=== PATIENT | female | born 1940 | race Two or more races ===

== ENCOUNTER 2019-12-26 15:33 | Inpatient (IN) | payer MEDICARE, OTHER ==
[~2019-12-26] VITALS: Ht 157.5 cm; Wt 67.1 kg
[~2019-12-26 15:33] MED LIST: ESOM20CA PO; HYDR-500 PO; SULF1TAB48 PO
[2019-12-26] MEDS ORDERED: ZOLP5TAB2 PO (16:20)
[2019-12-26] MEDS ORDERED: LEVO50TA8 PO (16:20)
[2019-12-26] MEDS ORDERED: ACET-868 PO (16:20)
[2019-12-26] MEDS ORDERED: HYDR25TA4 PO (16:20)
[2019-12-26] MEDS ORDERED: LORA-259 PO (16:20)
[2019-12-26] MEDS ORDERED: SIMV-46 PO (16:20)
[2019-12-26] MEDS ORDERED: MAGN400O6 PO (16:20)
[2019-12-26] MEDS ORDERED: QUET100T PO (16:20)
[2019-12-26] MEDS ORDERED: IBUP-1955 PO (16:20)
[2019-12-26] MEDS ORDERED: DOCU250C14 PO (16:20)
[2019-12-26] MEDS ORDERED: OMEP20CA15 PO (16:20)
[2019-12-26] MEDS ORDERED: LACT1CAP71 PO (16:20)
[2019-12-26] MEDS ORDERED: SENN-261 PO (16:20)
[2019-12-26] MEDS ORDERED: CHOL100040 PO (16:20)
[2019-12-26] MEDS ORDERED: OLAN10TA3 PO (16:20)
--- NOTE | 2019-12-26 16:21 | NUR ---
PT BIB PRIVATE AMBULANCE FOR MEDICAL CLEARANCE PRIOR TO ADMISSION TO [facility]. PT REPORTS LEFT LEG PAIN FROM "CALLUSES" ON BOTTOM OF FOOT, ASKING FOR MOTRIN. DENIES SI/HI. ON 5150 FOR DANGER TO OTHERS. RESP EVEN UNLABORED. NAD NOTED. IN ER BED 13, CALM AND COOPERATIVE.
[2019-12-26 16:31] LABS: BASOPHILS % (AUTO) 0.3 % (0.0-2.0); EOSINOPHILS % (AUTO) 4.2 % (0.0-6.0); HEMATOCRIT 37 % (33-45); LYMPHOCYTES % (AUTO) 22.3 % (20.0-44.0); MEAN CORPUSCULAR HGB CONC 33 g/dl (31.0-36.0); MEAN CORPUSCULAR VOLUME 87 fL (82-100); MONOCYTES # (AUTO) 0.8 /CMM (0.1-1.30); MONOCYTES % (AUTO) 8.3 % (2.0-12.0); NEUTROPHILS # (AUTO) 5.9 /CMM (1.8-8.9); NEUTROPHILS % (AUTO) 64.9 % (43.0-81.0); PLATELET COUNT (AUTO) 237 /CMM (150-450); RED BLOOD CELL COUNT(AUTO) 4.19 MIL/uL (4.0-5.2); WHITE BLOOD COUNT (AUTO) 9.1 K/uL (4.3-11.0)
--- NOTE | 2019-12-26 16:42 | NUR ---
RAPID COVID SWAB DONE AND SENT TO LAB
[2019-12-26 16:54] LABS: ALANINE AMINOTRANSFERASE 13 U/L (12-78); ALBUMIN 3.1 g/dL (3.4-5.0); ALCOHOL, BLOOD < 3 mg/dL (0-0); ALKALINE PHOSPHATASE 65 U/L (46-116); ASPARTATE AMINOTRANSFERASE 14 U/L (15-37); BILIRUBIN,TOTAL 0.3 mg/dL (0.2-1.0); CALCIUM, SERUM 8.8 mg/dL (8.5-10.1); CARBON DIOXIDE 31 mmol/L (21-32); CHLORIDE 102 mmol/L (98-107); CREATININE 0.9 mg/dL (0.6-1.3); GLUCOSE 89 mg/dL (74-106); POTASSIUM 3.6 mmol/L (3.5-5.1); SODIUM SERUM 136 mmol/L (136-145); TOTAL PROTEIN, SERUM 7.2 g/dL (6.4-8.2); UREA NITROGEN, BLOOD 31 mg/dL (7-18)
--- NOTE | 2019-12-26 17:30 | NUR ---
PROVIDED WITH DINNER TRAY
--- NOTE | 2019-12-26 17:44 | NUR ---
negative covid19 test.
--- NOTE | 2019-12-26 17:49 | NUR ---
NURSING SUP GAVE [facility] BED 214-B.
--- NOTE | 2019-12-26 17:51 | NUR ---
REPORT GIVEN TO POLY PATEL
[2019-12-26 18:20] LABS: ACETAMINOPHEN 0 ug/ml (10-30)
--- NOTE | 2019-12-26 18:20 | NUR ---
TRANSFERRED TO [facility] RM 214 IN STABLE CONDITION.
[2019-12-26] MEDS ORDERED: BLOOD SUGAR DIAGNOSTIC 1 EACH STRIP IN ONE (19:00)
[2019-12-26] MEDS ORDERED: MAGNESIUM HYDROXIDE 30 ML UDC PO PRN (19:00)
[2019-12-26] MEDS ORDERED: ACETAMINOPHEN 325 MG TABLET PO PRN (19:00)
[2019-12-26] MEDS ORDERED: MAG HYDROX/AL HYDROX/SIMETH 30 ML UDC PO PRN (19:00)
[2019-12-26] MEDS: DOCUSATE SODIUM 250 MG CAPSULE PO SCH (20:46)
[2019-12-26] MEDS: OLANZAPINE 5 MG TABLET PO SCH (21:33)
[2019-12-26] MEDS: LACTOBACILLUS RHAMNOSUS GG 1 EACH CAP.SPRINK PO SCH (21:33)
[2019-12-26] MEDS: DIVALPROEX SODIUM 250 MG TABLET.DR PO SCH (21:33)
[2019-12-26] MEDS: SIMVASTATIN 20 MG TABLET PO SCH (21:33)
[2019-12-26] MEDS: IBUPROFEN 600 MG TABLET PO PRN (21:37)
[2019-12-26] MEDS: MAGNESIUM HYDROXIDE 30 ML UDC PO PRN (21:37)
--- NOTE | 2019-12-26 21:40 | NUR ---
[facility] RN NOTE: PAIN PT WAS C/O OF 6/10 LEG PAIN, REQUESTED MOTRIN, ADMIN MOTRIN PRN@ [phone], PT TOLERATED WELL, WILL REASSESS AND CONTINUE TO MONITOR Q15MIN FOR SAFETY AND BEHAVIOR
--- NOTE | 2019-12-26 22:00 | NUR ---
[facility] RN NOTE: ADMISSION NOTE PT ARRIVED ON THE UNIT AT 1900, PT IS A/O X2, CALM, COOPERATIVE, CONFUSED AT TIMES BUT REDIRECTABLE, PT KNOWS WHERE SHE IS, WHAT DAY IT IS BUT "DOES NOT UNDERSTAND WHY I'M HERE" PER PT WORDS. PER REPORT PT IS VERY UNPREDICTABLE, ANXIOUS, AND IS CURRENTLY ON A 5150 DUE TO DTO, PER HOLD PT WAS THROWING VASES AND BECOMING ABUSIVE, HITTING RESIDENTS AND STAFF AT THE FACILITY SHE RESIDES IN [facility]. UPON ASSESSMENT PT WAS COOPERATIVE AND COMPLIANT. PT HAS A MEDICAL HX OF HYPOTHYRPIDISM, GERD AND PSYCH HX OF SCHIZOAFFECTIVE. PT HAS A DISHEVELED APPEARANCE, CONTINENT, AMBULATORY WITH WALKER HAS MILD WEAKNESS AND MOTOR DEFICITS, PT WAS ORDERED. SKIN ASSESSMENT WAS DONE PT HAS SACRAL REDNESS AND PSORIASIS THROUGHOUT THE BODY, PICTURES PLACED IN CHART, WOUND CONSULT ORDERED. PT WAS ADVISED OF THE HOLD AND REASON FOR ADMISSION. PT FAMILY HAS BEEN NOTIFIED, PT SPOKE TO DR. WRIGHT AND WAS STARTED ON SCHEDUELED MEDICATION, PT TOLERATED MEDICATION WELL AND WAS COOPERATIVE. PT STATES SHE DENIES SI/HI, DENIES AVH BUT HAS PARANOID IDEATION, PT BELEIVES THAT THE DEVIL IS OUT TO GET HER, PER PTS WORDS.PT STATES SHE CURRENTLY SMOKED 2 PACKS OF CIGARETTES A DAY BUT REFUSES A NICOTINE PATCH, PT STATED " I LIKE TO GET HIGH AND DRINK VODKA AND ORANGE JUICE DAILY". PT CAN NOT RECALL IF SHE RECEIVED THE PNA VACCINE, I CALLED THE FACILITY AT 2057 3X AND NO ANSWER, WILL TRY AGAIN IN THE MORNING AND PT REFUSES THE FLU VACCINE SHE STATED SHE BELIEVES IT WILL GET HER SICK. PT RIGHT BOOKLET AND COPY OF ADVISEMENT GIVEN TO THE PT, PT MADE AWARE OF THE UNIT, ALL NEEDS MET AT THIS TIME. PT WILL BE UNDER THE PLAN OF CARE OF DR. CASTANEDA AND [facility] CARE OF DR. WRIGHT, BOTH ADVISED OF THE PTS ADMISSION. WILL CONTINUE TO MONITOR Q15MIN FOR SAFETY AND BEHAVIOR.
[2019-12-26] MEDS: TEMAZEPAM 7.5 MG CAPSULE PO PRN (23:33)
--- NOTE | 2019-12-26 23:40 | NUR ---
[facility] RN NOTE: INSOMNIA PT C/O OF HAVING DIFFICULTY SLEEPING ASKED TO HAVE MEDICATION TO HELP, ADMIN RESTORIL PRN @ 2813, WILL REASSESS AND CONTINUE TO MONITOR Q15MIN FOR SAFETY AND BEHAVIOR
[2019-12-26 23:57] VITALS: BP 132/56
--- NOTE | 2019-12-27 06:17 | NUR ---
[facility] RN NOTE: REFUSAL OF VACCINES SPOKE TO AIRPLANE MECHANIC KARLI FROM PTS FACILITY [facility], KARLI STATED THE PT DID NOT RECEIVED THE FLU OR PNA VACCINE TO ASK THE PT IF SHE WOULD LIKE TO GET EXPEDITIONARY FORCE COMBAT SKILLS. SPOKE TO THE PT AGAIN, ASKED IF SHE WOULD LIKE THE VACCINES PT STATED SHE DOES NOT SHE BELIEVES THE VACCINES WILL GIVE HER PNA AND FLU.
[2019-12-27 07:43] LABS: ALBUMIN 3.1 g/dL (3.4-5.0); BILIRUBIN,TOTAL 0.2 mg/dL (0.2-1.0); CREATININE 0.9 mg/dL (0.6-1.3); POTASSIUM 3.9 mmol/L (3.5-5.1); TOTAL PROTEIN, SERUM 7.2 g/dL (6.4-8.2)
[2019-12-27 08:00] VITALS: BP 108/61
[2019-12-27] MEDS: PANTOPRAZOLE 40 MG TABLET.DR PO SCH (08:24)
[2019-12-27] MEDS: LEVOTHYROXINE SODIUM 50 MCG TABLET PO SCH (08:24)
[2019-12-27] MEDS: DIVALPROEX SODIUM 250 MG TABLET.DR PO SCH ×2 (08:24→20:51)
[2019-12-27] MEDS: SENNOSIDES 8.6 MG TABLET PO SCH (08:24)
[2019-12-27] MEDS: OLANZAPINE 5 MG TABLET PO SCH ×2 (08:25→20:51)
[2019-12-27] MEDS: DOCUSATE SODIUM 250 MG CAPSULE PO SCH ×2 (08:25→16:21)
[2019-12-27] MEDS: HYDROCHLOROTHIAZIDE 25 MG TABLET PO SCH (08:26)
--- NOTE | 2019-12-27 09:14 | NUR ---
SNF CONTACT: JOSE contacted [facility] Address: [address] [place] [address] and spoke with AUBREY Shane who stated the facility is unable to accommodate pts needs as pt is very aggressive and non-compliant with her care and medications and requires a facility that can accommodate pts mental health needs. Per AUBREY, pt has been living there since September and states that pts roxana Young ([phone]) is pts emergency contact but states that she is unable to help with pts behavior issues. JOSE informed AUBREY that JOSE will try to place pt locally however, if pts Medicare days are exhausted and SW is unable to place pt for any other reason she will have to return back to the facility. AUBREY agreed.
--- NOTE | 2019-12-27 09:35 | NUR ---
FAMILY CONTACT: JOSE contacted pts roxana Young ([phone]) to discuss pts treatment and discharge plan. SW informed her that [facility] did not want to accept pt back as per DON facility is unable to meet pts needs due to pts aggressive and unmanageable behavior. JOSE discussed the possibility of SW placing pt locally and niece refused stating she wants pt to return to [facility] as that is where pts sister currently resides and also states that all of pts immediate family live in the [facility]. JOSE discussed pts current treatment plan and diagnosis and niece states that she agrees and believes that with medication pt will return to baseline and hopes that the facility will no longer have an issue with pt. Niece states that she is pts next of kin and decision maker and states that pt does not have children and is a .
--- NOTE | 2019-12-27 09:48 | NUR ---
SNF CONTACT: JOSE contacted [facility] Address: [address] [place] [address] and spoke with AUBREY Shane to inform her that pts niece is refusing placement elsewhere and wishes for pt to return back to the facility. JOSE informed her that pt will have to return back to the facility as she is currently on a 7 day bed hold and facility legally cannot dump pt. JOSE provided AUBREY with pts current treatment plan. AUBREY became upset but agreed with pt returning to the facility before the 7 day bed hold expires.
--- NOTE | 2019-12-27 10:11 | NUR ---
SNF CONTACT: JOSE received a call from Lola, medical office administrator at [facility] Address: [address] [place] [address] who stated pts niece is not pts DPOA or conservator and stated she cannot make decisions for pt. JOSE explained that niece is pts next of kin and stated that facility had to honor 7 day bed hold. Lola stated that facility will honor 7 day bed hold but wish for pt to be placed elsewhere. JOSE states that niece is refusing other placement and facility cannot dump pt if she is in a 7 day bed hold. JOSE stated that pt will be discharged before 7 day bed hold expires and Lola agreed.
--- NOTE | 2019-12-27 10:44 | NUR ---
RN NOTE STILL WAITING FOR THE PHARMACY TO REFILL THE OMNICELL VITAMIN D3 5000 UNITS. FOLLOW UP CALLS TO PHARMACY ARE MADE. WILL CONTINUE TO FOLLOW UP UNTIL DELIVERED.
--- NOTE | 2019-12-27 11:00 | NUR ---
INITIAL DISCHARGE PLAN: Pt is on a 7 day bed hold at [facility] Address: [address] [place] [address] and will return before bed hold expires on 01/02/20. JOSE will help form a safe and proper discharge in collaboration with
[2019-12-27] MEDS: CHOLECALCIFEROL 1,000 UNIT TABLET (VIT D3) PO SCH (11:44)
--- NOTE | 2019-12-27 13:47 | NUR ---
SNF CONTACT: JOSE received a call from AUBREY Shane at [facility] Address: [address] [place] [address] who stated pts niece is not pts DPOA or conservator and stated she cannot make decisions for pt. JOSE reminded AUBREY that pt is on a 7 day bed hold and facility needed to honor that bed hold if not the facility can be reported for dumping. AUBREY was upset and agreed.
[2019-12-27 16:00] VITALS: BP 100/56
[2019-12-27] MEDS: IBUPROFEN 600 MG TABLET PO PRN (16:21)
[2019-12-27 19:46] VITALS: BP 101/52
[2019-12-27 20:11] VITALS: BP 101/52
[2019-12-27] MEDS: SIMVASTATIN 20 MG TABLET PO SCH (21:42)
[2019-12-27] MEDS: LACTOBACILLUS RHAMNOSUS GG 1 EACH CAP.SPRINK PO SCH (21:42)
--- NOTE | 2019-12-28 06:02 | NUR ---
[facility] RN NOTE PATIENT LOVES TO EAT SNACKS & KEEP ASKING FOR SNACKS FREQUENTLY WHILE AWAKE. SNACKS GIVEN TO THE PATIENT & TOLERATED WELL.
[2019-12-28] MEDS: LEVOTHYROXINE SODIUM 50 MCG TABLET PO SCH (07:53)
[2019-12-28] MEDS: ACETAMINOPHEN 325 MG TABLET PO PRN (07:53)
[2019-12-28] MEDS: PANTOPRAZOLE 40 MG TABLET.DR PO SCH (07:53)
[2019-12-28] MEDS: CHOLECALCIFEROL 1,000 UNIT TABLET (VIT D3) PO SCH (08:02)
[2019-12-28] MEDS: DOCUSATE SODIUM 250 MG CAPSULE PO SCH ×2 (08:02→16:45)
[2019-12-28] MEDS: SENNOSIDES 8.6 MG TABLET PO SCH (08:02)
[2019-12-28] MEDS: DIVALPROEX SODIUM 250 MG TABLET.DR PO SCH ×2 (08:02→21:17)
[2019-12-28] MEDS: OLANZAPINE 5 MG TABLET PO SCH ×2 (08:02→21:17)
[2019-12-28 08:03] VITALS: BP 127/67
[2019-12-28] MEDS: HYDROCHLOROTHIAZIDE 25 MG TABLET PO SCH (08:03)
--- NOTE | 2019-12-28 08:15 | NUR ---
gps newspaper carriers supervisor: md visit dr. welsh at bedside and informed md that pt's sodium level was 133 yesterday and pt is on hydrochlorothiazide with order to d'c hydrochlorothiazide and put her on clonidine 0.1 mg po q6 hr prn if sbp>150. orders read back and carried out and acknowledged.
[2019-12-28] MEDS ORDERED: CLONIDINE HCL 0.1 MG TABLET PO PRN (08:30)
--- NOTE | 2019-12-28 10:33 | NUR ---
WOUND CARE CONSULT: PT ADAMANTLY REFUSED SKIN ASSESSMENT. PT IS CONTINENT AND AMBULATORY AND HAS PSORIASIS PER NURSING STAFF. WILL SEE PRN. CURRENT ARIN SCORE IS 19.
[2019-12-28 16:00] VITALS: BP 113/59
[2019-12-28 19:48] VITALS: BP 113/52
[2019-12-28 19:51] VITALS: BP 113/52
[2019-12-28] MEDS: SIMVASTATIN 20 MG TABLET PO SCH (21:47)
[2019-12-28] MEDS: LACTOBACILLUS RHAMNOSUS GG 1 EACH CAP.SPRINK PO SCH (21:47)
[2019-12-29] MEDS: MAGNESIUM HYDROXIDE 30 ML UDC PO PRN (06:56)
--- NOTE | 2019-12-29 06:58 | NUR ---
[facility] RN NOTE: CONSTIPATION PATIENT VERBALIZED THAT SHE NEEDS MILK OF MAGNESIA FOR CONSTIPATION & IT HELPS HER. PRN MOM 30 ML PO GIVEN. WILL ENDORSE TO AM RN FOR CONTINUITY OF CARE.
[2019-12-29 08:00] VITALS: BP 109/53
[2019-12-29] MEDS: DIVALPROEX SODIUM 250 MG TABLET.DR PO SCH ×2 (08:43→22:38)
[2019-12-29] MEDS: CHOLECALCIFEROL 1,000 UNIT TABLET (VIT D3) PO SCH (08:43)
[2019-12-29] MEDS: OLANZAPINE 5 MG TABLET PO SCH ×2 (08:44→22:38)
[2019-12-29] MEDS: DOCUSATE SODIUM 250 MG CAPSULE PO SCH ×2 (08:44→16:25)
[2019-12-29] MEDS: SENNOSIDES 8.6 MG TABLET PO SCH (08:44)
[2019-12-29] MEDS: PANTOPRAZOLE 40 MG TABLET.DR PO SCH (08:44)
[2019-12-29] MEDS: LEVOTHYROXINE SODIUM 50 MCG TABLET PO SCH (08:44)
[2019-12-29 16:00] VITALS: BP 100/58
[2019-12-29] MEDS: IBUPROFEN 600 MG TABLET PO PRN ×2 (16:58→22:52)
[2019-12-29 20:48] VITALS: BP 104/52
[2019-12-29] MEDS: LACTOBACILLUS RHAMNOSUS GG 1 EACH CAP.SPRINK PO SCH (21:41)
[2019-12-29] MEDS: SIMVASTATIN 20 MG TABLET PO SCH (22:00)
--- NOTE | 2019-12-29 22:37 | NUR ---
[facility] RN NOTE: MEDICATION REFUSAL Pt refused Zocor, Zyprexa and Depakote. Pt stated "I do not take these medications". Explained risks and benefits x3 and continued to refuse. Will continue to monitor.
[2019-12-29] MEDS: TEMAZEPAM 7.5 MG CAPSULE PO PRN (22:52)
--- NOTE | 2019-12-29 22:58 | NUR ---
[facility] RN NOTE: REQUESTED PRN MEDICATIONS Pt requested Motrin 600mg PO PRN for 5/10 sharp pain in her bilateral lower legs, Temazepam 7.5mg PO PRN HS. Stated she cannot sleep, Milk of Magnesia PO Q12H PRN. Medications administered as ordered. Will continue to monitor.
[2019-12-30] MEDS: ACETAMINOPHEN 325 MG TABLET PO PRN ×2 (03:50→21:47)
--- NOTE | 2019-12-30 03:54 | NUR ---
RN NOTE: PAIN Pt complaining of 3/10 pain in bilateral legs. Requested pain medication. Tylenol 650mg PO PRN given as ordered. Will continue to monitor.
[2019-12-30 08:00] VITALS: BP 100/64
[2019-12-30] MEDS: DIVALPROEX SODIUM 250 MG TABLET.DR PO SCH ×2 (08:14→20:56)
[2019-12-30] MEDS: LEVOTHYROXINE SODIUM 50 MCG TABLET PO SCH (08:14)
[2019-12-30] MEDS: OLANZAPINE 5 MG TABLET PO SCH ×2 (08:14→20:56)
[2019-12-30] MEDS: DOCUSATE SODIUM 250 MG CAPSULE PO SCH ×2 (08:14→16:50)
[2019-12-30] MEDS: PANTOPRAZOLE 40 MG TABLET.DR PO SCH (08:14)
[2019-12-30] MEDS: CHOLECALCIFEROL 1,000 UNIT TABLET (VIT D3) PO SCH (08:14)
[2019-12-30] MEDS: SENNOSIDES 8.6 MG TABLET PO SCH (08:15)
[2019-12-30 16:00] VITALS: BP 114/58
[2019-12-30 20:16] VITALS: BP 111/57
[2019-12-30] MEDS: LACTOBACILLUS RHAMNOSUS GG 1 EACH CAP.SPRINK PO SCH (20:56)
[2019-12-30] MEDS: SIMVASTATIN 20 MG TABLET PO SCH (20:56)
[2019-12-30] MEDS: TEMAZEPAM 7.5 MG CAPSULE PO PRN (20:56)
[2019-12-30] MEDS: LORAZEPAM 0.5 MG TABLET PO PRN (21:46)
[2019-12-31] MEDS: LORAZEPAM 0.5 MG TABLET PO PRN (05:58)
[2019-12-31] MEDS: ACETAMINOPHEN 325 MG TABLET PO PRN (05:58)
[2019-12-31] MEDS: LEVOTHYROXINE SODIUM 50 MCG TABLET PO SCH (07:34)
[2019-12-31] MEDS: PANTOPRAZOLE 40 MG TABLET.DR PO SCH (07:34)
[2019-12-31 08:00] VITALS: BP 128/67
[2019-12-31] MEDS: DIVALPROEX SODIUM 250 MG TABLET.DR PO SCH (08:53)
[2019-12-31] MEDS: OLANZAPINE 5 MG TABLET PO SCH (08:54)
[2019-12-31] MEDS: SENNOSIDES 8.6 MG TABLET PO SCH (08:54)
[2019-12-31] MEDS: CHOLECALCIFEROL 1,000 UNIT TABLET (VIT D3) PO SCH (08:54)
[2019-12-31] MEDS: DOCUSATE SODIUM 250 MG CAPSULE PO SCH (08:54)
--- NOTE | 2019-12-31 09:00 | NUR ---
RN NOTE- PT ALERT ORIENTED TO PERSON PLACE CONFUSED, DIRECTABLE, MED COMPLIANT NEEDS ATTENDED, DENIES SI HI AH VH, NO BEHAVIORAL ISSUES, VISIBLE ON UNIT, INTERACTIVE ENGAGES
--- NOTE | 2019-12-31 10:00 | NUR ---
SNF Contact: SW spoke with AUBREY Shane and Shirin at [facility] Address: [address] [place] [id number] ( ) regarding patient's discharge discharge today. Both requested patient's nurse's notes and psychiatry notes. This SW faxed both Svitlana and Shirin (fax: [phone]) the requested documents.
--- NOTE | 2019-12-31 10:23 | NUR ---
DISCHARGE NOTE: Patient will be discharged today back to [facility] [id number] [place] [address] ([phone]) via ambulance transportation today at 1PM. SW spoke with AUBREY Shane at the facility who is made aware and is agreeable with discharge plan. Patients roxana Young ([phone]) is made aware and is agreeable with discharge plans. Patient is alert and oriented times 3 and is aware and agreeable with discharge plan. Patient denies suicidal or homicidal ideation. Patient is unable to plan for self-care, however, is willing to received care provided for her at the facility. Patient will follow-up at the facility with Parts Sales Counterperson Dr. Allen and this SW spoke with Svitlana BURGOS ([phone]) who stated that they are making an appointment for the patient to see a psychiatrist at [facility]. Shower Screen Installer faxed patients discharge packet to the facility.
--- NOTE | 2019-12-31 14:55 | NUR ---
RN NOTE/DISCHARGE- PT DC AT THIS TIME VIA GURNEY AND AMBULANCE TO [facility]. REPORT PHONED TO NURSING STAFF AT 1145 AM. PT ALERT ORIENTED TO PERSON PLACE PURPOSE. DENIES SI HI AH VH. VS STABLE. REFUSES FLU SHOT AND PNA SHOT. STATES SHE GETS THEM AT FACILITY WHERE SHE LIVES. PT DC PLANNING REVIEWED W AMBULANCE STAFF AND VERBALIZED UNDERSTANDING STATED. VALUABLES RETURNED TO PT. ID [id number] REMOVED. ESCORTED OFF UNIT BY AMBULANCE STAFF BY THIS RN
--- NOTE | 2019-12-31 16:14 | NUR ---
SNF Contact: JOSE received a call from Shirin at [facility] Address: [address] [place] [address] ( ) requesting the previously faxed documents again and this communications writer confirmed that they did received it. Shirin stated they did received the documents and stated that should they required additional documents that can request it from medical records. This communications writer confirmed.
== END 2019-12-31 13:55 | DRG 885 ==
LOC: ER 15:42 → GPS 18:19
PROVIDERS: ADMIT Psychiatry & Neurology Psychiatry; ATTEND Internal Medicine
DX: F25.9 Schizoaffective disorder, unspecified (principal); E43 Unspecified severe protein-calorie malnutrition; E03.9 Hypothyroidism, unspecified; F41.9 Anxiety disorder, unspecified; I10 Essential (primary) hypertension; M19.90 Unspecified osteoarthritis, unspecified site; G89.29 Other chronic pain; E78.5 Hyperlipidemia, unspecified; E55.9 Vitamin D deficiency, unspecified; Z79.899 Other long term (current) drug therapy; F29 Unspecified psychosis not due to a substance or known physiological condition; Z73.6 Limitation of activities due to disability; R27.8 Other lack of coordination; F17.200 Nicotine dependence, unspecified, uncomplicated; F32.9 Major depressive disorder, single episode, unspecified; Z91.81 History of falling; L40.9 Psoriasis, unspecified; F03.90 Unspecified dementia, unspecified severity, without behavioral disturbance, psychotic disturbance, mood disturbance, and anxiety
CPT/HCPCS: 36415; 80048-TC; 80053-TC; 80061-TC; 80076-TC; 82962-TC; 85025-TC; 87081-TC; 97112-TC; 97116-TC; 97530-TC; C9803; G0480

== ENCOUNTER 2022-03-01 04:15 | Emergency (ER) | payer MEDICARE, OTHER ==
[~2022-03-01] VITALS: Ht 162.6 cm; Wt 63.5 kg
[~2022-03-01 04:15] MED LIST changes: +ACET-868 PO; +CHOL100040 PO; +DOCU250C14 PO; -ESOM20CA PO; -HYDR-500 PO; +HYDR25TA4 PO; +IBUP-1955 PO; +LACT1CAP71 PO; +LEVO50TA8 PO; +MAGN400O6 PO; +OMEP20CA15 PO; +SENN-261 PO; +SIMV-46 PO; -SULF1TAB48 PO
[2022-03-01 04:30] VITALS: BP 117/63
[2022-03-01] MEDS ORDERED: IV NS 0.9% 1,000 ML BAG IV ONE (04:30)
[2022-03-01] MEDS ORDERED: MORPHINE SULFATE INJ 2 MG/ML DISP.SYRIN IV ONE (04:30)
--- NOTE | 2022-03-01 04:30 | NUR ---
[id number] [facility] HOME FOR WEAKNESS X 1 MONTH. PATIENT IS AAOX4. ABLE TO MAKE NEEDS KNOWN. PLACED COMFORTABLY IN BED. VITALS CHECKED.
[2022-03-01] MEDS ORDERED: MORPHINE SULFATE INJ 4 MG/ML DISP.SYRIN ONE (04:42)
--- NOTE | 2022-03-01 04:55 | NUR ---
IV LINE ESTABLISHED, [id number]
--- NOTE | 2022-03-01 04:55 | NUR ---
URINE SAMPLE COLLECTED
--- NOTE | 2022-03-01 04:55 | NUR ---
BLOOD COLLECTED AND SENT TO LAB
[2022-03-01 05:15] LABS: BASOPHILS % (AUTO) 0.2 % (0.0-2.0); EOSINOPHILS % (AUTO) 5.1 % (0.0-6.0); HEMATOCRIT 40 % (33-45); HEMOGLOBIN 13.1 g/dL (11.5-14.8); LYMPHOCYTES # (AUTO) 2.2 K/uL (0.8-4.8); LYMPHOCYTES % (AUTO) 25.7 % (20.0-44.0); MEAN CORPUSCULAR HGB CONC 33 g/dl (31.0-36.0); MEAN CORPUSCULAR VOLUME 86 fL (82-100); MONOCYTES # (AUTO) 0.7 K/uL (0.1-1.30); MONOCYTES % (AUTO) 7.8 % (2.0-12.0); NEUTROPHILS # (AUTO) 5.3 K/uL (1.8-8.9); NEUTROPHILS % (AUTO) 61.2 % (43.0-81.0); PLATELET COUNT (AUTO) 253 K/uL (150-450); WHITE BLOOD COUNT (AUTO) 8.6 K/uL (4.3-11.0)
[2022-03-01 05:34] LABS: CALCIUM, SERUM 9.6 mg/dL (8.5-10.1); CARBON DIOXIDE 27 mmol/L (21-32); CHLORIDE 106 mmol/L (98-107); CREATININE 0.9 mg/dL (0.6-1.3); GLUCOSE 97 mg/dL (74-106); POTASSIUM 4.4 mmol/L (3.5-5.1); SODIUM SERUM 139 mmol/L (136-145); UREA NITROGEN, BLOOD 24 mg/dL (7-18)
[2022-03-01 05:44] LABS: BILIRUBIN,URINE NEGATIVE (NEGATIVE); COLOR,URINE YELLOW (YELLOW); LEUKOCYTE ESTERASE ,URINE NEGATIVE (NEGATIVE); NITRITE, URINE NEGATIVE (NEGATIVE); PH,URINE 5.5 (5.0-8.0); PROTEIN,URINE NEGATIVE (NEGATIVE); UGLUCOSE NEGATIVE (NEGATIVE); UROBILINOGEN,URINE 0.2 EU/dL (0.2)
[2022-03-01 06:08] LABS: BACTERIA,URINE Rare /HPF (None Seen); SQUAMOUS EPITHELIAL CELL,UR Few /HPF (None Seen); WBC,URINE 0-2 /HPF (0-3)
--- NOTE | 2022-03-01 06:14 | NUR ---
PATIENT FOR DISCHARGE. TRANSPORTATION TO BE ARRANGE.
--- NOTE | 2022-03-01 06:22 | NUR ---
CHAD- CAREGIVER [phone]
--- NOTE | 2022-03-01 07:23 | NUR ---
REPORT GIVEN TO AMANDA FORREST
--- NOTE | 2022-03-01 08:28 | NUR ---
IV removed. Catheter intact and site benign. Pressure and 4x4 applied to site. No bleeding noted.Patient discharged to home in stable condition. Written and verbal after care instructions given. Patient verbalizes understanding of instruction.Report given to EMT transport for starr.
== END 2022-03-01 08:30 | disposition home or self-care (01) ==
LOC: ER 04:20
DX: M79.672 Pain in left foot (principal); M79.671 Pain in right foot; M79.10 Myalgia, unspecified site; E03.9 Hypothyroidism, unspecified; M19.90 Unspecified osteoarthritis, unspecified site; M54.50 Low back pain, unspecified; Z79.899 Other long term (current) drug therapy
CPT/HCPCS: 99285; 96374; 71045; 96361; 93005; 85025; 80048; 82550; 81001; 36415; 84484; J2270